=== PATIENT | female | born 1980 | race Two or more races ===

== ENCOUNTER 2016-11-21 07:24 | Day surgery (SDC) | payer MEDICARE, MEDICAID ==
[~2016-11-21] VITALS: Ht 165.1 cm; Wt 77.0 kg
[~2016-11-21 07:24] MED LIST: BUPIVACAINE/PF-EPI 0.25% 1:200K ONE; NEOMY/POLYMYXIN B GU IRR. 1 ML IRRIG ONE
[2016-11-21 08:46] VITALS: BP 123/77
[2016-11-21] MEDS ORDERED: MIDAZOLAM 1 MG/ML, 2ML ONE (08:47)
[2016-11-21] MEDS ORDERED: FENTANYL PF 250 MCG/5ML ONE (08:47)
[2016-11-21] MEDS ORDERED: LACTATED RINGERS 1,000 ML IV SCH (09:11)
[2016-11-21 09:18] LABS: HCG UR OBC PASS
[2016-11-21] MEDS ORDERED: NO MEDICATIONS (09:19)
[2016-11-21] MEDS ORDERED: DEXAMETHASONE 4 MG/ML, 1ML ONE (09:28)
[2016-11-21] MEDS ORDERED: NEOSTIGMINE 1 MG/ML, 10ML ONE (09:28)
[2016-11-21] MEDS ORDERED: ONDANSETRON 2MG/ML, 2ML ONE (09:28)
[2016-11-21] MEDS ORDERED: KETOROLAC 30 MG/1 ML ONE (09:28)
[2016-11-21] MEDS ORDERED: ROCURONIUM 10 MG/ML ONE (09:28)
[2016-11-21] MEDS ORDERED: CEFAZOLIN 1,000 MG ONE (09:28)
[2016-11-21] MEDS ORDERED: GLYCOPYRROLATE 0.2MG/1ML ONE (09:28)
[2016-11-21] MEDS ORDERED: NEOMY/POLYMYXIN B GU IRR. 1 ML IRRIG ONE (09:45)
[2016-11-21] MEDS ORDERED: BUPIVACAINE/PF-EPI 0.25% 1:200K INFIL ONE (10:04)
[2016-11-21] MEDS ORDERED: PROMETHAZINE 25 MG/ML, 1ML IV PRN (11:00)
[2016-11-21] MEDS ORDERED: OXYcodone 5 MG/5 ML ORAL.SOL UDC PO PRN (11:00)
[2016-11-21] MEDS ORDERED: ACETAMINOPHEN 325 MG TABLET PO PRN (11:00)
[2016-11-21] MEDS ORDERED: FENTANYL PF 100 MCG/2ML ONE (11:06)
[2016-11-21] MEDS ORDERED: MEPERIDINE/PF 25MG/0.5ML ONE (11:06)
[2016-11-21] MEDS ORDERED: OXYcodone 5 MG/5 ML ORAL.SOL UDC ONE (11:06)
[2016-11-21] MEDS ORDERED: ACETAMINOPHEN 650 MG/20.3 ML UDC ONE (11:14)
[2016-11-21] MEDS: FENTANYL PF 100 MCG/2ML IV PRN ×2 (11:20→11:35)
[2016-11-21] MEDS ORDERED: MEPERIDINE/PF 25MG/0.5ML IVPush PRN (11:30)
[2016-11-21] MEDS ORDERED: PROMETHAZINE 25 MG/ML, 1ML ONE (11:31)
[2016-11-21] MEDS ORDERED: OXYcodone/APAP 5/325MG TABLET ONE (17:16)
[2016-11-21] MEDS ORDERED: OXYcodone/APAP 5/325MG TABLET PO PRN (17:30)
== END 2016-11-21 18:00 | disposition home or self-care (01) ==
LOC: OR 07:24 → OUT 18:00
PROVIDERS: ATTEND Obstetrics & Gynecology Female Pelvic Medicine and Reconstructive Surgery
DX: N39.3 Stress incontinence (female) (male) (principal); N83.8 Other noninflammatory disorders of ovary, fallopian tube and broad ligament; N81.11 Cystocele, midline; N81.6 Rectocele; N81.5 Vaginal enterocele
CPT/HCPCS: 57265; 57282; 57288; 58552; 81025; 88307; C1771; J0690; J1100; J1885; J2175; J2250; J2405; J2550; J2710; J3010; J7120; J3490